=== PATIENT | female | born 1945 | race Caucasian/White ===

== ENCOUNTER 2016-11-22 13:29 | Inpatient (IN) | payer OTHER, MEDICAID ==
[~2016-11-22] VITALS: Ht 170.2 cm; Wt 158.5 kg
[2016-11-22] VITALS (15 sets, daily range): BP systolic 74–138; RESP 18; TEMP 97.7–97.9; Ht 170.2 cm; Wt 158.5 kg
[2016-11-22] MEDS ORDERED: ACETAMINOPHEN 325 MG TAB ONE (16:01)
[2016-11-22] MEDS ORDERED: SODIUM CHLORIDE 0.9% 1,000 ML ONE (16:02)
[2016-11-22] MEDS ORDERED: DILTIAZEM 50 MG/10 ML VIAL IV ONE (16:02)
[2016-11-22] MEDS ORDERED: ED DILTIAZEM DRIP 125 ML IV ONE (16:02)
[2016-11-22] MEDS ORDERED: KCL CR 20 MEQ TAB PO STA (17:38)
[2016-11-22] MEDS ORDERED: SALINE FLUSH 10 ML FLUSH PRN (17:40)
[2016-11-22] MEDS ORDERED: CARDIZEM 1 MG/ML DRIP 125 ML IV SCH (17:40)
[2016-11-22] MEDS: METOPROLOL TART 50 MG TAB PO SCH ×2 (17:45→20:43)
[2016-11-22] MEDS ORDERED: SODIUM CHLORIDE 0.9% 100 ML IV ONE (18:19)
[2016-11-22] MEDS ORDERED: CEFTRIAXONE 1 GM VIAL ONE (18:19)
[2016-11-22] MEDS ORDERED: KCL CR 20 MEQ TAB PO ONE (19:40)
[2016-11-22] MEDS: AMITRIPTYLINE 25 MG TAB PO SCH (20:42)
[2016-11-22] MEDS: PRAVASTATIN 20 MG TAB PO SCH (20:42)
[2016-11-22] MEDS: APIXABAN 5 MG TAB PO SCH (20:42)
[2016-11-22] MEDS: FAMOTIDINE 20 MG TAB PO SCH (20:42)
[2016-11-22] MEDS: SALINE FLUSH 10 ML FLUSH SCH (20:44)
[2016-11-22] MEDS: CEFTRIAXONE 1 GM in SODIUM CHLORIDE 0.9% 50 ML IV SCH (21:27)
[2016-11-22] MEDS: MAGNESIUM SULF 1 GM/100 ML 100 ML IV SCH ×2 (22:10→23:16)
[2016-11-23] VITALS (22 sets, daily range): BP systolic 89–148; RESP 16–20; TEMP 97.6–100.5
[2016-11-23] MEDS: MAGNESIUM SULF 1 GM/100 ML 100 ML IV SCH ×2 (01:34→02:37)
[2016-11-23] MEDS: SODIUM CHLORIDE 0.9% FLUSH BAG 500 ML IV SCH (05:05)
[2016-11-23] MEDS: ACETAMINOPHEN 325 MG TAB PO PRN (06:22)
[2016-11-23] MEDS ORDERED: MISSING DOSE XX ONE ×2 (07:45→09:30)
[2016-11-23] MEDS: SALINE FLUSH 10 ML FLUSH SCH ×2 (08:00→20:00)
[2016-11-23] MEDS ORDERED: Furosemide 40 MG TAB PO SCH (09:00)
[2016-11-23] MEDS: DILTIAZEM CD 120 MG CAP PO SCH (09:43)
[2016-11-23] MEDS: CEFTRIAXONE 1 GM in SODIUM CHLORIDE 0.9% 50 ML IV SCH ×2 (09:43→20:03)
[2016-11-23] MEDS: FAMOTIDINE 20 MG TAB PO SCH ×2 (09:43→20:04)
[2016-11-23] MEDS: BUPROPION XL 150 MG TAB PO SCH (09:44)
[2016-11-23] MEDS: APIXABAN 5 MG TAB PO SCH ×2 (09:44→20:04)
[2016-11-23] MEDS: METOPROLOL TART 50 MG TAB PO SCH ×2 (09:45→20:04)
[2016-11-23] MEDS: AMITRIPTYLINE 25 MG TAB PO SCH (20:04)
[2016-11-23] MEDS: PRAVASTATIN 20 MG TAB PO SCH (20:04)
[2016-11-24] VITALS (7 sets, daily range): BP systolic 90–122; RESP 18–20; TEMP 97.3–98.7
[2016-11-24] MEDS: SODIUM CHLORIDE 0.9% FLUSH BAG 500 ML IV SCH (05:02)
[2016-11-24] MEDS ORDERED: KCL CR 20 MEQ TAB PO STA (08:18)
[2016-11-24] MEDS ORDERED: MAGNESIUM SULF 1 GM/100 ML 100 ML IV ONE (08:20)
[2016-11-24] MEDS: SALINE FLUSH 10 ML FLUSH SCH ×2 (08:57→20:04)
[2016-11-24] MEDS: CEFTRIAXONE 1 GM in SODIUM CHLORIDE 0.9% 50 ML IV SCH (08:57)
[2016-11-24] MEDS: APIXABAN 5 MG TAB PO SCH ×2 (08:58→20:03)
[2016-11-24] MEDS: BUPROPION XL 150 MG TAB PO SCH (08:58)
[2016-11-24] MEDS: DILTIAZEM CD 120 MG CAP PO SCH (08:58)
[2016-11-24] MEDS: METOPROLOL TART 50 MG TAB PO SCH (08:58)
[2016-11-24] MEDS: FAMOTIDINE 20 MG TAB PO SCH ×2 (08:58→20:03)
[2016-11-24] MEDS: Furosemide 20 MG TAB PO SCH (08:58)
[2016-11-24] MEDS ORDERED: KCL CR 20 MEQ TAB PO ONE (10:20)
[2016-11-24] MEDS ORDERED: PHARMACY TO DOSE VANCOMYCIN IV SCH (10:55)
[2016-11-24] MEDS: VANCOMYCIN 2,000 MG in SODIUM CHLORIDE 0.9% 500 ML IV SCH ×2 (13:24→23:47)
[2016-11-24] MEDS: METOPROLOL TART 100 MG TAB PO SCH (20:03)
[2016-11-24] MEDS: PRAVASTATIN 20 MG TAB PO SCH (20:03)
[2016-11-24] MEDS: AMITRIPTYLINE 25 MG TAB PO SCH (20:04)
[2016-11-25 04:19] VITALS: BP_SYST 105; RESP 20; TEMP 98.4
[2016-11-25] MEDS: SODIUM CHLORIDE 0.9% FLUSH BAG 500 ML IV SCH (05:25)
[2016-11-25 07:52] VITALS: BP_SYST 114; RESP 16; TEMP 98.2
[2016-11-25] MEDS: BUPROPION XL 150 MG TAB PO SCH (08:15)
[2016-11-25] MEDS: SALINE FLUSH 10 ML FLUSH SCH ×2 (08:15→20:32)
[2016-11-25] MEDS: FAMOTIDINE 20 MG TAB PO SCH ×2 (08:15→20:31)
[2016-11-25] MEDS: APIXABAN 5 MG TAB PO SCH ×2 (08:16→20:32)
[2016-11-25] MEDS: Furosemide 20 MG TAB PO SCH (08:16)
[2016-11-25] MEDS: METOPROLOL TART 100 MG TAB PO SCH (08:16)
[2016-11-25] MEDS: DILTIAZEM CD 120 MG CAP PO SCH (08:16)
[2016-11-25] MEDS ORDERED: KCL CR 20 MEQ TAB PO ONE (09:00)
[2016-11-25] MEDS: LINEZOLID 600 MG TAB PO SCH ×2 (09:48→20:31)
[2016-11-25] MEDS: ACETAMINOPHEN 325 MG TAB PO PRN (09:49)
[2016-11-25 12:13] VITALS: BP_SYST 112; RESP 16; TEMP 97.9
[2016-11-25 16:15] VITALS: BP_SYST 112; RESP 16; TEMP 97.2
[2016-11-25 19:38] VITALS: BP_SYST 110; RESP 16; TEMP 98.3
[2016-11-25] MEDS: PRAVASTATIN 20 MG TAB PO SCH (20:31)
[2016-11-25] MEDS: AMITRIPTYLINE 25 MG TAB PO SCH (20:32)
[2016-11-25] MEDS ORDERED: METOPROLOL TART 100 MG TAB PO SCH (21:00)
[2016-11-25 23:18] VITALS: BP_SYST 118; RESP 16; TEMP 97.2
[2016-11-26 02:52] VITALS: BP_SYST 120; RESP 16; TEMP 98.6
[2016-11-26] MEDS: SODIUM CHLORIDE 0.9% FLUSH BAG 500 ML IV SCH (06:02)
[2016-11-26] MEDS ORDERED: NYSTATIN PWD 100,000 UNITS/GM 15 GM TOPICAL PRN (06:15)
[2016-11-26 07:44] VITALS: BP_SYST 118; RESP 18; TEMP 97.5
[2016-11-26] MEDS: SALINE FLUSH 10 ML FLUSH SCH ×2 (09:40→21:05)
[2016-11-26] MEDS: LINEZOLID 600 MG TAB PO SCH ×2 (09:41→21:05)
[2016-11-26] MEDS: DILTIAZEM CD 120 MG CAP PO SCH (09:41)
[2016-11-26] MEDS: FAMOTIDINE 20 MG TAB PO SCH ×2 (09:41→21:05)
[2016-11-26] MEDS: APIXABAN 5 MG TAB PO SCH ×2 (09:41→21:05)
[2016-11-26] MEDS: BUPROPION XL 150 MG TAB PO SCH (09:41)
[2016-11-26] MEDS: Furosemide 20 MG TAB PO SCH (09:42)
[2016-11-26] MEDS ORDERED: MISSING DOSE XX ONE (09:55)
[2016-11-26] MEDS: METOPROLOL XL 25 MG TAB PO SCH (10:42)
[2016-11-26 11:03] VITALS: BP_SYST 122; RESP 18; TEMP 97.7
[2016-11-26] MEDS: Furosemide 20 MG/2 ML VIAL IV SCH ×2 (13:44→17:21)
[2016-11-26 14:58] VITALS: BP_SYST 106; RESP 18; TEMP 97.6
[2016-11-26] MEDS: ACETAMINOPHEN 325 MG TAB PO PRN (17:21)
[2016-11-26] MEDS: NYSTATIN PWD 100,000 UNITS/GM 15 GM TOPICAL PRN (17:28)
[2016-11-26 20:46] VITALS: BP_SYST 118; RESP 20; TEMP 97.8
[2016-11-26] MEDS: PRAVASTATIN 20 MG TAB PO SCH (21:05)
[2016-11-26] MEDS: AMITRIPTYLINE 25 MG TAB PO SCH (21:05)
[2016-11-26 23:34] VITALS: BP_SYST 110; RESP 18; TEMP 97.6
[2016-11-27] MEDS: SODIUM CHLORIDE 0.9% FLUSH BAG 500 ML IV SCH (02:38)
[2016-11-27 05:05] VITALS: BP_SYST 112; RESP 18; TEMP 97.8
[2016-11-27 07:54] VITALS: BP_SYST 118; RESP 12; TEMP 97.5
[2016-11-27] MEDS: LINEZOLID 600 MG TAB PO SCH ×2 (09:58→21:09)
[2016-11-27] MEDS: Furosemide 20 MG/2 ML VIAL IV SCH ×2 (09:58→18:34)
[2016-11-27] MEDS: SALINE FLUSH 10 ML FLUSH SCH ×2 (09:58→21:08)
[2016-11-27] MEDS: METOPROLOL XL 25 MG TAB PO SCH (09:59)
[2016-11-27] MEDS: BUPROPION XL 150 MG TAB PO SCH (09:59)
[2016-11-27] MEDS: APIXABAN 5 MG TAB PO SCH ×2 (09:59→21:08)
[2016-11-27] MEDS: FAMOTIDINE 20 MG TAB PO SCH ×2 (10:00→21:09)
[2016-11-27] MEDS: DILTIAZEM CD 120 MG CAP PO SCH (10:00)
[2016-11-27 10:29] VITALS: BP_SYST 126; RESP 18; TEMP 97.5
[2016-11-27] MEDS: ACETAMINOPHEN 325 MG TAB PO PRN (12:52)
[2016-11-27 15:21] VITALS: BP_SYST 128; RESP 16; TEMP 97.4
[2016-11-27] MEDS ORDERED: KCL CR 20 MEQ TAB PO ONE (16:00)
[2016-11-27] MEDS: NYSTATIN PWD 100,000 UNITS/GM 15 GM TOPICAL PRN (18:39)
[2016-11-27 19:26] VITALS: BP_SYST 118; RESP 18; TEMP 97.9
[2016-11-27] MEDS: AMITRIPTYLINE 25 MG TAB PO SCH (21:09)
[2016-11-27] MEDS: PRAVASTATIN 20 MG TAB PO SCH (21:09)
[2016-11-27 23:32] VITALS: BP_SYST 122; RESP 16; TEMP 97.1
[2016-11-28 04:30] VITALS: BP_SYST 140; RESP 18; TEMP 97.4
[2016-11-28 04:34] VITALS: BP_SYST 128
[2016-11-28] MEDS: SODIUM CHLORIDE 0.9% FLUSH BAG 500 ML IV SCH (05:27)
[2016-11-28 08:35] VITALS: BP_SYST 124; RESP 20; TEMP 98.3
[2016-11-28] MEDS: SALINE FLUSH 10 ML FLUSH SCH ×2 (08:38→21:22)
[2016-11-28] MEDS: Furosemide 20 MG/2 ML VIAL IV SCH ×2 (08:38→17:25)
[2016-11-28] MEDS: FAMOTIDINE 20 MG TAB PO SCH ×2 (08:38→21:22)
[2016-11-28] MEDS: BUPROPION XL 150 MG TAB PO SCH (08:39)
[2016-11-28] MEDS: METOPROLOL XL 25 MG TAB PO SCH (08:39)
[2016-11-28] MEDS: LINEZOLID 600 MG TAB PO SCH ×2 (08:39→21:22)
[2016-11-28] MEDS: DILTIAZEM CD 120 MG CAP PO SCH (08:39)
[2016-11-28] MEDS: APIXABAN 5 MG TAB PO SCH ×2 (08:40→21:22)
[2016-11-28 11:30] VITALS: BP_SYST 120; RESP 20; TEMP 97.7
[2016-11-28 15:51] VITALS: BP_SYST 105; RESP 18; TEMP 97.7
[2016-11-28 20:26] VITALS: BP_SYST 116; RESP 20; TEMP 97.5
[2016-11-28] MEDS: AMITRIPTYLINE 25 MG TAB PO SCH (21:22)
[2016-11-28] MEDS: PRAVASTATIN 20 MG TAB PO SCH (21:22)
[2016-11-29 00:33] VITALS: BP_SYST 110; RESP 20; TEMP 97.6
[2016-11-29 03:11] VITALS: BP_SYST 128; RESP 20; TEMP 97.6
[2016-11-29] MEDS: SODIUM CHLORIDE 0.9% FLUSH BAG 500 ML IV SCH (06:00)
[2016-11-29] MEDS: APIXABAN 5 MG TAB PO SCH ×2 (08:03→19:59)
[2016-11-29] MEDS: METOPROLOL XL 25 MG TAB PO SCH (08:05)
[2016-11-29] MEDS: DILTIAZEM CD 120 MG CAP PO SCH (08:05)
[2016-11-29] MEDS: LINEZOLID 600 MG TAB PO SCH ×2 (08:06→19:59)
[2016-11-29] MEDS: FAMOTIDINE 20 MG TAB PO SCH ×2 (08:06→19:59)
[2016-11-29] MEDS: SALINE FLUSH 10 ML FLUSH SCH ×2 (08:06→19:57)
[2016-11-29] MEDS: BUPROPION XL 150 MG TAB PO SCH (08:06)
[2016-11-29] MEDS: Furosemide 20 MG/2 ML VIAL IV SCH ×2 (08:06→16:37)
[2016-11-29 08:51] VITALS: BP_SYST 110; RESP 18; TEMP 98.4
[2016-11-29 12:10] VITALS: BP_SYST 118; RESP 18; TEMP 98.1
[2016-11-29] MEDS: ONDANSETRON 4 MG VIAL IV PUSH PRN (15:06)
[2016-11-29] MEDS: AMITRIPTYLINE 25 MG TAB PO SCH (19:59)
[2016-11-29] MEDS: PRAVASTATIN 20 MG TAB PO SCH (19:59)
[2016-11-29 20:30] VITALS: BP_SYST 132; RESP 18; TEMP 98.7
[2016-11-30] VITALS (7 sets, daily range): BP systolic 102–130; RESP 18–20; TEMP 96–98.6
[2016-11-30] MEDS: SODIUM CHLORIDE 0.9% FLUSH BAG 500 ML IV SCH ×2 (05:25→20:29)
[2016-11-30] MEDS: SALINE FLUSH 10 ML FLUSH SCH ×2 (08:24→20:36)
[2016-11-30] MEDS: Furosemide 20 MG/2 ML VIAL IV SCH ×2 (08:24→16:45)
[2016-11-30] MEDS: APIXABAN 5 MG TAB PO SCH ×2 (08:25→20:36)
[2016-11-30] MEDS: BUPROPION XL 150 MG TAB PO SCH (08:25)
[2016-11-30] MEDS: FAMOTIDINE 20 MG TAB PO SCH ×2 (08:25→20:36)
[2016-11-30] MEDS: ACETAMINOPHEN 325 MG TAB PO PRN (08:25)
[2016-11-30] MEDS: LINEZOLID 600 MG TAB PO SCH ×2 (08:26→20:36)
[2016-11-30] MEDS: DILTIAZEM CD 120 MG CAP PO SCH (08:26)
[2016-11-30] MEDS: METOPROLOL XL 25 MG TAB PO SCH (08:26)
[2016-11-30] MEDS: AMITRIPTYLINE 25 MG TAB PO SCH (20:36)
[2016-11-30] MEDS: PRAVASTATIN 20 MG TAB PO SCH (20:36)
[2016-12-01 04:29] VITALS: BP_SYST 114; RESP 18; TEMP 96.1
[2016-12-01] MEDS: Furosemide 20 MG/2 ML VIAL IV SCH ×2 (06:06→13:03)
[2016-12-01] MEDS: BUPROPION XL 150 MG TAB PO SCH (09:24)
[2016-12-01] MEDS: LINEZOLID 600 MG TAB PO SCH ×2 (09:24→19:39)
[2016-12-01] MEDS: APIXABAN 5 MG TAB PO SCH ×2 (09:25→19:39)
[2016-12-01] MEDS: SALINE FLUSH 10 ML FLUSH SCH ×2 (09:25→19:39)
[2016-12-01] MEDS: DILTIAZEM CD 120 MG CAP PO SCH (09:25)
[2016-12-01] MEDS: METOPROLOL XL 25 MG TAB PO SCH (09:25)
[2016-12-01] MEDS: FAMOTIDINE 20 MG TAB PO SCH ×2 (09:25→19:38)
[2016-12-01 12:45] VITALS: BP_SYST 110; RESP 18; TEMP 98.5
[2016-12-01 18:37] VITALS: BP_SYST 108
[2016-12-01] MEDS: AMITRIPTYLINE 25 MG TAB PO SCH (19:38)
[2016-12-01] MEDS: PRAVASTATIN 20 MG TAB PO SCH (19:39)
[2016-12-01 20:30] VITALS: BP_SYST 110; RESP 20; TEMP 98.3
[2016-12-02] VITALS (7 sets, daily range): BP systolic 92–132; RESP 16–20; TEMP 96.4–98.6
[2016-12-02] MEDS: SODIUM CHLORIDE 0.9% FLUSH BAG 500 ML IV SCH (05:04)
[2016-12-02] MEDS: Furosemide 20 MG/2 ML VIAL IV SCH ×2 (06:16→15:12)
[2016-12-02] MEDS: BUPROPION XL 150 MG TAB PO SCH (09:21)
[2016-12-02] MEDS: FAMOTIDINE 20 MG TAB PO SCH ×2 (09:21→20:13)
[2016-12-02] MEDS: APIXABAN 5 MG TAB PO SCH ×2 (09:21→20:13)
[2016-12-02] MEDS: DILTIAZEM CD 120 MG CAP PO SCH (09:21)
[2016-12-02] MEDS: SALINE FLUSH 10 ML FLUSH SCH ×2 (09:22→20:13)
[2016-12-02] MEDS: METOPROLOL XL 25 MG TAB PO SCH (09:22)
[2016-12-02] MEDS: PRAVASTATIN 20 MG TAB PO SCH (20:13)
[2016-12-02] MEDS: AMITRIPTYLINE 25 MG TAB PO SCH (20:13)
[2016-12-02] MEDS ORDERED: LINEZOLID 600 MG TAB PO SCH (21:00)
[2016-12-03 03:30] VITALS: BP_SYST 100; RESP 18; TEMP 98.1
[2016-12-03] MEDS: SODIUM CHLORIDE 0.9% FLUSH BAG 500 ML IV SCH (06:00)
[2016-12-03 08:24] VITALS: BP_SYST 106; RESP 18; TEMP 98.6
[2016-12-03] MEDS: SALINE FLUSH 10 ML FLUSH SCH ×2 (09:23→20:12)
[2016-12-03] MEDS: BUPROPION XL 150 MG TAB PO SCH (09:23)
[2016-12-03] MEDS: APIXABAN 5 MG TAB PO SCH ×2 (09:23→20:13)
[2016-12-03] MEDS: Furosemide 40 MG TAB PO SCH (09:23)
[2016-12-03] MEDS: METOPROLOL XL 25 MG TAB PO SCH (09:23)
[2016-12-03] MEDS: DILTIAZEM CD 120 MG CAP PO SCH (09:24)
[2016-12-03] MEDS: FAMOTIDINE 20 MG TAB PO SCH ×2 (09:24→20:20)
[2016-12-03 12:32] VITALS: BP_SYST 116; RESP 18; TEMP 97.8
[2016-12-03 15:58] VITALS: BP_SYST 105; RESP 18; TEMP 98.4
[2016-12-03] MEDS: AMITRIPTYLINE 25 MG TAB PO SCH (20:20)
[2016-12-03] MEDS: PRAVASTATIN 20 MG TAB PO SCH (20:21)
[2016-12-03] MEDS: ONDANSETRON 4 MG VIAL IV PUSH PRN (20:27)
[2016-12-03 20:53] VITALS: BP_SYST 106; RESP 20; TEMP 98
[2016-12-03 23:56] VITALS: BP_SYST 110; RESP 18; TEMP 98.6
[2016-12-04 04:53] VITALS: BP_SYST 104; RESP 18; TEMP 97.5
[2016-12-04] MEDS: SODIUM CHLORIDE 0.9% FLUSH BAG 500 ML IV SCH (05:33)
[2016-12-04 08:00] VITALS: BP_SYST 128; RESP 16; TEMP 97.1
[2016-12-04] MEDS: Furosemide 40 MG TAB PO SCH (10:02)
[2016-12-04] MEDS: BUPROPION XL 150 MG TAB PO SCH (10:02)
[2016-12-04] MEDS: DILTIAZEM CD 120 MG CAP PO SCH (10:02)
[2016-12-04] MEDS: METOPROLOL XL 25 MG TAB PO SCH (10:02)
[2016-12-04] MEDS: APIXABAN 5 MG TAB PO SCH (10:03)
[2016-12-04] MEDS: SALINE FLUSH 10 ML FLUSH SCH (10:03)
[2016-12-04] MEDS: FAMOTIDINE 20 MG TAB PO SCH (10:03)
[2016-12-04 10:47] VITALS: BP_SYST 110; RESP 18; TEMP 98.3
[2016-12-04 15:15] VITALS: BP_SYST 116; RESP 16; TEMP 97.7
[2016-12-04 16:55] VITALS: BP_SYST 116; RESP 16; TEMP 97.7
[2016-12-05] MEDS ORDERED: KCL CR 10 MEQ CAP PO SCH (09:00)
== END 2016-12-04 18:27 | DRG 308 ==
LOC: ENRESERVDT → ENRESERVTM → ER 13:29 → ENPENDDIS 17:38 → EMR 17:38 → PCU 19:18 → 4NT 11-25 17:19
PROVIDERS: ADMIT Hospitalist; ATTEND Hospitalist
CPT/HCPCS: 36415; 71020; 80048; 80053; 81001; 82553; 83605; 83630; 83690; 83735; 83880; 84100; 84439; 84443; 84484; 85025; 85610; 85730; 87040; 87045; 87046; 87077; 87088; 87177; 87186; 87493; 87804; 93005; 94799; 96361; 96365; 96366; 96367; 99223; 99231; 99232; 99233; 99238